=== PATIENT | male | born 1975 | race Caucasian/White ===

== ENCOUNTER → 2023-09-28 | Outpatient (CLI) | payer BC ==
[~2023-09-28] MED LIST: AMOX500C2 PO; CPR500T PO; DOXY100C5 PO; FAMO-119 PO; HYDR-34 PO; HYDR1TAB8 OP; ONDAN4ODT PO; PRD20T PO
--- NOTE | 2023-09-28 08:51 | Diagnostic Imaging Report ---
PROCEDURE: MRI lumbar spine. TECHNIQUE: Multiplanar, multisequence MRI of the lumbar spine was performed without contrast. INDICATION: Low back pain with no known discrete specific injury. CORRELATED with lumbar radiographs performed in 2016. No prior MR. FINDINGS: Lumbar statures are normal. The alignment is anatomic. The marrow signal intensity normal aside from very mild mixed fatty and edematous Modic type I-type II degenerative changes across the L5-S1 opposing endplates anteriorly. The pedicles and pars appeared intact. No acute or chronic fracture. No paravertebral mass, hemorrhage or acute fluid collection. The T11 superior endplate Schmorl's node deformity at its mid segment is nonedematous and chronic. The lower thoracic cord and conus normal no paravertebral mass, hemorrhage or acute fluid collection. The visible aorta nonaneurysmal. The visible sacral levels in the parasagittal images showed no edema. T12-L1: This level and disc normal. No stenosis. L1-L2: This level and disc normal. No stenosis. L2-L3: There is very slight minimal disc desiccation and trace diffuse bulge but no resultant stenosis or focal protrusion. L3-L4: There is disc desiccation, stature loss and mild diffuse bulge. There is mild facet arthrosis and mild thickening of the ligamenta flava. The findings however result in no substantial degree of canal stenosis. There is a mild degree of right foraminal narrowing. L4-L5: There is facet arthrosis, disc desiccation, bulge and endplate osteophytes with thickened ligamenta flava. There is moderate to severe left and [id number] right neural foraminal stenosis with mild to moderate central canal stenosis. L5-S1: Disc desiccation, endplate osteophytes and facet arthrosis result in severe biforaminal stenoses, greater right. There is no substantial canal or recess stenosis. IMPRESSION: L5-S1 foraminal stenoses appear severe, greater right, and owing to bony endplate spurs, hypertrophy and facet arthrosis as well as diffuse disc bulge. Additional substantial foraminal greater than canal stenoses at the additional levels detailed above. Normal alignment with no acute bony abnormality. Dictated by: Dictated on workstation # [id number]
== END ==
LOC: RAD 07:36
PROVIDERS: ATTEND Registered Nurse
DX: M48.02 Spinal stenosis, cervical region (principal); M46.07 Spinal enthesopathy, lumbosacral region; M89.38 Hypertrophy of bone, other site; M47.817 Spondylosis without myelopathy or radiculopathy, lumbosacral region; M51.27 Other intervertebral disc displacement, lumbosacral region; M48.061 Spinal stenosis, lumbar region without neurogenic claudication; M47.816 Spondylosis without myelopathy or radiculopathy, lumbar region; M51.26 Other intervertebral disc displacement, lumbar region; M25.78 Osteophyte, vertebrae
CPT/HCPCS: 72148